=== PATIENT | female | born 1975 | race Caucasian/White ===

== ENCOUNTER 2022-12-29 22:50 | Emergency (ER) | payer BC, OTHER ==
[2022-12-29] MEDS ORDERED: ONDANSETRON 4 MG/2 ML VIAL ONE (23:07)
[2022-12-29] MEDS ORDERED: HYDROMORPHONE HCL 1 MG/ML INJ ONE (23:07)
[2022-12-29] MEDS ORDERED: NA CHLORIDE 0.9% 1,000 ML ONE (23:08)
[2022-12-29 23:45] LABS: Absolute Lymphocytes (CBC) 2.3 K/uL (0.7-4.9); Hematocrit 41.6 % (36.0-45.0); Lymphocytes % 21.9 % (15.3-44.8); MCV 90.6 fL (80-100); MPV 7.4 fL (7.6-11.3); RBC Red Blood Cell Count 4.59 M/uL (3.86-4.86)
[2022-12-29 23:54] LABS: Potassium 3.6 mEq/L (3.5-5.1)
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
[2022-12-30] MEDS ORDERED: HYDROCODONE/APAP 5/325 MG TAB ONE ×2 (00:18→00:49)
[2022-12-30] MEDS ORDERED: TDAP (DIPHTH,PERTUSS(ACELL),TET VAC) 0.5 ML VIAL IMVAC ONE (00:23)
[2022-12-30 09:08] VITALS: BP 124/66; TEMP 98.2; O2SAT 100
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
--- NOTE | 2022-12-30 15:15 | RAD REPORT ---
EXAM DESCRIPTION: RAD - Foot Right 2 View - 12/30/2022 12:12 am CLINICAL HISTORY: The patient is 47 years old and is Female; SMASH INJURY TECHNIQUE: Frontal and lateral views of the right foot. COMPARISON: No relevant prior studies available. FINDINGS: BONES/JOINTS: Unremarkable. No acute fracture. No dislocation. SOFT TISSUES: Unremarkable. No radiopaque foreign body. IMPRESSION: Normal right foot radiographs. Electronically signed by: Kira Vitale MD 12/30/2022 12:39 AM CDT Due to temporary technical issues with the PACS/Fluency reporting system, reports are being signed by the in house radiologists without review as a courtesy to insure prompt reporting. The interpreting radiologist is fully responsible for the content of the report.
== END 2022-12-30 00:49 | disposition home or self-care (01) ==
LOC: ER 22:50
DX: S80.811A Abrasion, right lower leg, initial encounter (principal); S80.11XA Contusion of right lower leg, initial encounter
CPT/HCPCS: 85025; 80048; 36415; 72170; 73620; 73552; 73590; 73610; J1170; J2405; J7030; 96361; 96374; 96375; 99284